=== PATIENT | male | born 1995 | race Two or more races ===

== ENCOUNTER 2018-09-14 15:47 | Emergency (ER) | payer OTHER ==
[~2018-09-14] VITALS: Ht 180.3 cm; Wt 65.8 kg
[2018-09-14 15:53] VITALS: BP 108/69
--- NOTE | 2018-09-14 16:10 | NUR ---
ED Nurse Note: Patient presents to ER due to tingling on the tongue and rash on the low back and right arm after eating burrito at work yesterday. Reports no dyspnea, SOB or N/V. Able to speak full sentence. Regular, unlabored breathing noted. Alin has two bumps on the left low back and right elbow with redness and swelling. No facial grimacing or guarding noted.
[2018-09-14] MEDS ORDERED: BENADRYL25 MG ORAL (16:26)
[2018-09-14] MEDS ORDERED: PREDNISONE20 MG ORAL (16:26)
[2018-09-14 16:29] VITALS: BP 105/70
--- NOTE | 2018-09-14 16:30 | NUR ---
Note raymond in EDM - 09/14/18 at 1634 by SYLVIA ED Nurse Note: Homeless Discharge: Patient is being discharged from medical care. Awake, alert and oriented x4. After care instructions, including prescriptions were given. Patient verbalized understanding of After care instructions. ID band was removed. Patient ambulated out with all personal belongings with steady gait.
--- NOTE | 2018-09-14 16:32 | NUR ---
Note [email or web address] in EDM - 09/14/18 at 1633 by SYLVIA Homeless Discharge: Patient is being discharged from medical care. Awake, alert and oriented x4. After care instructions, including prescriptions were given. Patient verbalized understanding of After care instructions. ID band was removed. Patient ambulated out with all personal belongings with steady gait.
--- NOTE | 2018-09-14 19:37 | Emergency Room Report ---
History of Present Illness General Chief Complaint: Skin Rash/Abscess Source: Patient Present Illness HPI The patient is a 23-year-old male presenting for possible allergic reaction to food. He states that he is employed at [employer] and was eating a burrito while at work and started to feel a tingling of his tongue. He then developed a rash on his arms. He states that he has had a similar reaction after eating a burrito in the past. He is unsure of what he is allergic to. He states that symptoms have improved today. He denies other symptoms including nausea, vomiting, dizziness, shortness of breath, cough Allergies: Coded Allergies: No Known Allergies (Unverified , 09/14/18) Patient History Past Medical History: see triage record Pertinent Family History: none Reviewed Nursing Documentation: PMH: Agreed; PSxH: Agreed Nursing Documentation-PMH Past Medical History: No Stated History Review of Systems All Other Systems: negative except mentioned in HPI Physical Exam Vital Signs Date Time Temp Pulse Resp B/P (MAP) Pulse Ox O2 Delivery O2 Flow Rate FiO2 09/14/18 15:53 98.2 85 16 108/69 (82) 97 Room Air Sp02 EP Interpretation: reviewed, normal General Appearance: no apparent distress, alert, GCS 15, non-toxic Head: normocephalic, atraumatic Respiratory: chest non-tender, lungs clear, normal breath sounds, speaking full sentences Cardiovascular #1: regular rate, rhythm, no edema Musculoskeletal: back normal, gait/station normal, normal range of motion, non- tender, calf tenderness Neurologic: alert, oriented x3, responsive, motor strength/tone normal, sensory intact, speech normal Psychiatric: judgement/insight normal, memory normal, mood/affect normal, no suicidal/homicidal ideation Skin: rash - erythema to arms and lower back Lymphatic: no adenopathy Medical Decision Making PA Attestation Dr. Lo is my supervising physician. Patient management was discussed with my supervising physician Diagnostic Impression: Primary Impression: Allergic reaction to food Qualified Codes: T78.1XXA - Other adverse food reactions, not elsewhere classified, initial encounter ER Course The patient is a 23-year-old male presenting for possible allergic reaction to food Ddx considered include but not limited to allergic reaction, insect bite, contact dermatitis, cellulitis PE: Afebrile. NAD There is an erythematous macular rash to both arms and the lower back. Nontender. Skin is warm and dry HEENT exam is unremarkable. Tongue is normal size. Oropharynx is patent. lungs are clear to auscultation bilaterally The patient is given first dose of prednisone in the emergency department. He is not given Benadryl as he does not have a ride home. He is prescribed prednisone and Benadryl. He is told to not eat what caused this reaction again. He is told to follow-up with primary doctor and possibly have allergy testing. ER precautions given Last Vital Signs Date Time Temp Pulse Resp B/P (MAP) Pulse Ox O2 Delivery O2 Flow Rate FiO2 09/14/18 16:29 97.3 83 18 105/70 96 Room Air Status: improved Disposition: HOME, SELF-CARE Condition: Improved Scripts Prednisone* (PREDNISONE*) 20 Mg Tablet 20 MG ORAL DAILY, #4 TAB 0 Refills Prov: JOCELYNE ANTONIO 09/14/18 Diphenhydramine Hcl* (BENADRYL*) 25 Mg Capsule 25 MG ORAL Q6H PRN for Itching, #20 CAP Prov: JOCELYNE ANTONIO 09/14/18 Referrals: NON PHYSICIAN (PCP) Patient Instructions: Rash, Food Allergy Additional Instructions: I discussed my findings with the patient. All questions and concerns have been answered. Treatment and medication compliance have been addressed. I advised the patient that they need to follow up with PMD in 3-5 days. Return to ED if symptoms worsen, new symptoms arise, or if needed for any reason. Patient verbalized understanding of discharge instructions. JOCELYNE ANTONIO Sep 14, 2018 19:37
== END 2018-09-14 16:54 | disposition home or self-care (01) ==
LOC: EMR 16:10
DX: T78.1XXA Other adverse food reactions, not elsewhere classified, initial encounter (principal); X58.XXXA Exposure to other specified factors, initial encounter; Y92.9 Unspecified place or not applicable
CPT/HCPCS: 99282; J7512